=== PATIENT | female | born 1950 | race Caucasian/White ===

== ENCOUNTER 2017-03-08 09:17 | Emergency (ER) | payer BC, MEDICARE ==
--- NOTE | 2017-03-08 09:49 | ER Document Report ---
ED Medical Screen (RME) - General TRAVEL OUTSIDE OF THE [place] IN LAST 30 DAYS: No <TRENTON RICE - Last Filed: 03/08/17 10:03> <OSKAR CONTRERAS - Last Filed: 03/08/17 12:26> - General Chief Complaint: Leg Swelling Stated Complaint: SKIN PROBLEM LEFT LEG Time Seen by Provider: 03/08/17 09:45 Notes: This 66-year-old female patient was in the office by her primary care provider for evaluation of a left lower leg cellulitis. She reports being bitten by mosquito on the left anterior ankle area about 4 weeks ago. She has since slowly developed redness and petechial-like rash in that area and now the erythema has spread up just above the knee. She reports there has been some fevers associated with this. Her blood pressure was elevated at triage, she reports she did take her blood pressure medication about 8:00 this morning. She is on lisinopril, Bumex, Aldactone, aspirin, as needed Motrin, and Synthroid. I have greeted and performed a rapid initial assessment of this patient. A comprehensive ED assessment and evaluation of the patient, analysis of test results and completion of the medical decision making process will be conducted by additional ED providers. (TRENTON RICE) - Related Data Allergies/Adverse Reactions: No Known Allergies Allergy (Verified 03/08/17 09:41) Home Medications: Current Home Medications Bumetanide [Bumex 2 mg Tablet] 2 mg PO BID 03/08/17 [History] Ibuprofen [Motrin 800 mg Tablet] 800 mg PO Q8H PRN 03/08/17 [History] Levothyroxine Sodium [Synthroid 0.15 mg Tablet] 0.3 mg PO DAILY 03/08/17 [ History] Lisinopril 10 mg PO DAILY 03/08/17 [History] Spironolactone [Aldactone] 50 mg PO BID 03/08/17 [History] Past Medical History - Past Medical History Cardiac Medical History: Reports: Hx Hypertension Renal/ Medical History: Denies: Hx Peritoneal Dialysis Musculoskeltal Medical History: Reports Hx Arthritis Past Surgical History: Reports: Hx Breast Surgery - benign lump removed right breast, Hx Hysterectomy, Hx Orthopedic Surgery - cervical fusion, carpal tunnel , Hx Tonsillectomy - Immunizations Hx Diphtheria, Pertussis, Tetanus Vaccination: Yes <TRENTON RICE - Last Filed: 03/08/17 10:03> Course - Laboratory Result Diagrams: 03/08/17 10:00 03/08/17 10:00 <OSKAR CONTRERAS - Last Filed: 03/08/17 12:26> - Vital Signs Vital signs: Temp Pulse Resp BP Pulse Ox 98.6 F 82 16 178/80 H 97 03/08/17 09:39 03/08/17 09:39 03/08/17 09:39 03/08/17 09:39 03/08/17 09:39 - Laboratory Laboratory results interpreted by me: 03/08/17 03/08/17 10:00 10:00 RDW 14.6 H Plt Count 89 L Glucose 182 H Total Bilirubin 2.0 H Direct Bilirubin 0.6 H Alkaline Phosphatase 132 H Doctor's Discharge <TRENTON RICE - Last Filed: 03/08/17 10:03> <OSKAR CONTRERAS - Last Filed: 03/08/17 12:26> - Discharge Clinical Impression: Cellulitis of leg, left Condition: Stable Disposition: HOME, SELF-CARE Instructions: Cellulitis ([facility]), Clindamycin ([facility]), Elevation & Warmth ([facility]) Additional Instructions: STAY OFF YOUR FEET MUCH POSSIBLE. KEEP LEFT LEG ELEVATED. TAKE CLINDAMYCIN DIRECTED. FOLLOW UP WITH DR. HSIEH IN 2 DAYS (MONDAY, MARCH 10). RETURN TO E.R. PROMPTLY IF PROBLEMS, ANY TIME. Prescriptions: Clindamycin HCl [Cleocin 150 mg Capsule] 300 mg PO Q6 #56 capsule Referrals: NORA HSIEH MD [Primary Care Provider] - 03/10/17
[2017-03-08 10:20] LABS: ABSOLUTE BASOPHILS # (AUTO) 0.1 10^3/uL (0.0-0.2); ABSOLUTE EOSINOPHILS # (AUTO) 0.1 10^3/uL (0.0-0.6); ABSOLUTE LYMPHOCYTES (AUTO) 1.6 10^3/uL (0.5-4.7); ABSOLUTE MONOCYTES (AUTO) 0.7 10^3/uL (0.1-1.4); ABSOLUTE NEUT (AUTO) 3.4 10^3/uL (1.7-8.2); EOSINOPHILS % (AUTO) 2.2 % (0-6); HEMATOCRIT 43.9 % (36.0-47.0); HGB HCT DIFFERENCE 1.1; LYMPHOCYTES % (AUTO) 27.1 % (13-45); MEAN CORPUSCULAR HEMOGLOBIN 32.3 pg (27.0-33.4); MEAN CORPUSCULAR HGB CONC 34.1 g/dL (32.0-36.0); MEAN CORPUSCULAR VOLUME 95 fl (80-97); MONOCYTES % (AUTO) 12.3 % (3-13); RED BLOOD COUNT 4.64 10^6/uL (3.72-5.28); RED CELL DISTRIBUTION WIDTH 14.6 % (11.5-14.0); SEGMENTED NEUTROPHILS % (AUTO) 57.4 % (42-78); WHITE BLOOD COUNT 5.8 10^3/uL (4.0-10.5)
--- NOTE | 2017-03-08 10:24 | ER Document Report ---
ED Extremity Problem, Lower - General Chief Complaint: Leg Swelling Stated Complaint: SKIN PROBLEM LEFT LEG Time Seen by Provider: 03/08/17 09:45 Mode of Arrival: Ambulatory Information source: Patient TRAVEL OUTSIDE OF THE [place] IN LAST 30 DAYS: No - HPI Patient complains to provider of: Pain, Swelling, Other - REDNESS Location: Ankle, Leg - LEFT Occurred: Other - 2-3 DAYS Onset/Duration: Gradual Quality of pain: Burning Severity: Mild Context: Other - RECENTLY BEGAN [employer]OB, LOTS OF TIME ON FEET Associated symptoms: Fever, Sweaty Exacerbated by: Movement, Walking Relieved by: Elevation - Related Data Allergies/Adverse Reactions: No Known Allergies Allergy (Verified 03/08/17 09:41) Home Medications: Current Home Medications Bumetanide [Bumex 2 mg Tablet] 2 mg PO BID 03/08/17 [History] Ibuprofen [Motrin 800 mg Tablet] 800 mg PO Q8H PRN 03/08/17 [History] Levothyroxine Sodium [Synthroid 0.15 mg Tablet] 0.3 mg PO DAILY 03/08/17 [ History] Lisinopril 10 mg PO DAILY 03/08/17 [History] Spironolactone [Aldactone] 50 mg PO BID 03/08/17 [History] Past Medical History - General Information source: Patient - Social History Smoking Status: Former Smoker Cigarette use (# per day): No Chew tobacco use (# tins/day): No Frequency of alcohol use: None Drug Abuse: None Lives with: Alone Family History: Reviewed & Not Pertinent Patient has suicidal ideation: No Patient has homicidal ideation: No - Past Medical History Cardiac Medical History: Reports: Hx Hypertension Pulmonary Medical History: Reports: None EENT Medical History: Reports: None Neurological Medical History: Reports: None Endocrine Medical History: Reports: None Renal/ Medical History: Reports: None. Denies: Hx Peritoneal Dialysis GI Medical History: Reports: Hx Cirrhosis, Hx Hepatitis Musculoskeltal Medical History: Reports Hx Arthritis Skin Medical History: Reports Hx Cellulitis - [facility] Medical History: Reports: None Past Surgical History: Reports: Hx Breast Surgery - benign lump removed right breast, Hx Hysterectomy, Hx Orthopedic Surgery - cervical fusion, carpal tunnel , Hx Tonsillectomy - Immunizations Hx Diphtheria, Pertussis, Tetanus Vaccination: Yes Review of Systems - Review of Systems Constitutional: See HPI EENT: No symptoms reported Cardiovascular: No symptoms reported Respiratory: No symptoms reported Gastrointestinal: No symptoms reported Genitourinary: No symptoms reported Female Genitourinary: Post menopausal Musculoskeletal: No symptoms reported Skin: See HPI Neurological/Psychological: No symptoms reported Physical Exam - Vital signs Vitals: Temp Pulse Resp BP Pulse Ox 98.6 F 82 16 178/80 H 97 03/08/17 09:39 03/08/17 09:39 03/08/17 09:39 03/08/17 09:39 03/08/17 09:39 Interpretation: Hypertensive - General General appearance: Appears well, Alert In distress: None - HEENT Head: Normocephalic Eyes: Normal Conjunctiva: Normal Ears: Normal Nasal: Normal Mouth/Lips: Normal Mucous membranes: Normal Neck: Normal - Respiratory Respiratory status: No respiratory distress - Cardiovascular Rhythm: Regular - Abdominal Inspection: Normal, Obese - Back Back: Normal - Extremities General upper extremity: Normal inspection General lower extremity: No: Normal inspection - [facility]. [facility] (SEE "SKIN" BELOW), Normal color, Des's sign - Neurological Neuro grossly intact: Yes Cognition: Normal Orientation: AAOx4 - Psychological Associated symptoms: Normal affect, Normal mood - Skin Skin Temperature: Warm Skin Moisture: Dry Skin Color: Normal Skin Turgor: Elastic Skin irregularity: Erythema - L. ANKLE & LOWER LEG, W/ APPARENT ANGIITIS EXTENDING TO THIGH Course - Vital Signs Vital signs: Temp Pulse Resp BP Pulse Ox 98.6 F 82 16 178/80 H 97 03/08/17 09:39 03/08/17 09:39 03/08/17 09:39 03/08/17 09:39 03/08/17 09:39 - Laboratory Result Diagrams: 03/08/17 10:00 03/08/17 10:00 Laboratory results interpreted by me: 03/08/17 03/08/17 10:00 10:00 RDW 14.6 H Plt Count 89 L Glucose 182 H Total Bilirubin 2.0 H Direct Bilirubin 0.6 H Alkaline Phosphatase 132 H Discharge - Discharge Clinical Impression: Cellulitis of left lower extremity Condition: Stable Disposition: HOME, SELF-CARE Instructions: Cellulitis ([facility]), Elevation & Warmth ([facility]), Clindamycin ([facility]) Additional Instructions: STAY OFF YOUR FEET MUCH POSSIBLE. KEEP LEFT LEG ELEVATED. TAKE CLINDAMYCIN DIRECTED. FOLLOW UP WITH DR. HSIEH IN 2 DAYS (MONDAY, MARCH 10). RETURN TO E.R. PROMPTLY IF PROBLEMS, ANY TIME. Prescriptions: Clindamycin HCl [Cleocin 150 mg Capsule] 300 mg PO Q6 #56 capsule Referrals: NORA HSIEH MD [Primary Care Provider] - 03/10/17
[2017-03-08] MEDS ORDERED: CLINDAMYCIN 600 MG/D5W RTU 50 ML IV ONE (10:30)
[2017-03-08 10:34] LABS: ALANINE AMINOTRANSFERASE 40 U/L (9-52); ALBUMIN 3.6 g/dL (3.5-5.0); ALKALINE PHOSPHATASE 132 U/L (38-126); ANION GAP 6 (5-19); ASPARTATE AMINO TRANSFERASE 32 U/L (14-36); BILIRUBIN,DIRECT 0.6 mg/dL (0.0-0.4); BLOOD UREA NITROGEN 14 mg/dL (7-20); CARBON DIOXIDE 29 mmol/L (22-30); CHLORIDE 106 mmol/L (98-107); CREATININE RESULT 0.82 mg/dL (0.52-1.25); GLUCOSE 182 mg/dL (75-110); POTASSIUM 4.3 mmol/L (3.6-5.0); SODIUM 141.3 mmol/L (137-145); TOTAL PROTEIN 7.1 g/dL (6.3-8.2)
[2017-03-08 12:34] VITALS: BP 138/80
== END 2017-03-08 12:35 | disposition home or self-care (01) ==
LOC: ER 09:17
DX: L03.116 Cellulitis of left lower limb (principal); I77.6 Arteritis, unspecified; I10 Essential (primary) hypertension; Z79.899 Other long term (current) drug therapy
CPT/HCPCS: 36415; 80053; 85025; 87040; 96365; 99283

== ENCOUNTER → 2017-07-21 | Outpatient (CLI) | payer OTHER, MEDICARE ==
--- NOTE | 2017-07-21 17:08 | RADIOLOGY REPORT (SQ) ---
EXAM DESCRIPTION: MRI ABDOMEN COMBO COMPLETED DATE/TIME: 07/21/2017 4:21 pm REASON FOR STUDY: UNSPECIFIED CIRRHOSIS OF THE LIVER K74.60 UNSPECIFIED CIRRHOSIS OF LIVER COMPARISON: MRI of the abdomen 01/15/2014 TECHNIQUE: Multiplanar multisequence imaging performed without and with contrast including sagittal, axial and coronal T2, axial T1, axial gradient fat sat T1, axial, sagittal and coronal fat sat T1 po st contrast. CONTRAST TYPE AND DOSE: 20 mL Multihance. RENAL FUNCTION: GFR > 60. LIMITATIONS: None. FINDINGS: LIVER: Liver is diffusely abnormal, diffusely small particularly along the left lobe liver . There is a nodular contour. No discrete masses. No abnormal contrast enhancement. There is flow signal in the hepatic vein and main portal vein. SPLEEN: 14 cm in length. No focal lesions. PANCREAS: No masses. No adjacent inflammation or peripancreatic fluid collections. Pancreatic duct no t dilated. GALLBLADDER: No masses. No stones. No gallbladder wall thickening or pericholecystic fluid. ADRENAL GLANDS: No significant masses or asymmetry. RIGHT KIDNEY AND URETER: No masses. No hydronephrosis. LEFT KIDNEY AND URETER: No masses. No hydronephrosis. AORTA AND VESSELS: No aneurysm. No dissection. Renal arteries, SMA, celiac without stenosis. RETROPERITONEUM: No retroperitoneal adenopathy, hemorrhage or masses. BOWEL: Not well seen ABDOMINAL WALL AND PERITONEUM: No ascites BONES: Mild diffuse degenerative changes OTHER: No other significant finding. IMPRESSION: Small nodular liver without discrete mass. TECHNICAL DOCUMENTATION: JOB ID: [id number] [employer]- All Rights Reserved
== END ==
LOC: RAD 14:56
PROVIDERS: ATTEND Obstetrics & Gynecology Gynecology
DX: K74.60 Unspecified cirrhosis of liver (principal)
CPT/HCPCS: 74183